=== PATIENT | male | born 1945 | race Caucasian/White ===

== ENCOUNTER 2022-10-15 10:25 | Outpatient (CLI) | payer OTHER, SELFPAY ==
[2022-10-15 15:42] LABS: Basophils Absolute Auto 0.02 K/uL (0.00-0.30); Basophils Percent Auto 0.3 % (0.0-3.0); Eosinophils Absolute Auto 0.13 K/uL (0.00-0.50); Eosinophils Percent Auto 1.9 % (0.0-7.0); Hematocrit 44.4 % (37.0-53.0); Hemoglobin* 14.7 gm/dL (13.5-17.5); Immature Granulocytes Abs Auto 0.01 K/uL (0.00-0.30); Immature Granulocytes Pct Auto 0.1 %; Lymphocytes Absolute Auto 1.54 K/uL (0.90-2.90); Lymphocytes Percent Auto 22.7 % (20-44); Mean Corpuscular HGB Conc 33 gm/dL (32-36); Mean Corpuscular Hemoglobin 33 pg (26-34); Mean Corpuscular Volume 98 fL (80-100); Monocytes Percent Auto 8.4 % (0.0-11.0); Neutrophils Absolute Auto 4.52 K/uL (1.7-7.0); Neutrophils Percent Auto 66.6 % (42.0-72.0); Platelet Count* 322 K/uL (140-440); RDW Coefficient of Variation % 12.6 % (11.5-15.5); Red Blood Count 4.52 m/uL (4.30-5.90); White Blood Count* 6.79 K/uL (4.50-11.00)
[2022-10-15 15:43] LABS: Albumin* 4.2 g/dL (3.3-5.0); Chloride* 104 mmol/L (96-114); Potassium* 4.3 mmol/L (3.6-5.1); Sodium* 141 mmol/L (135-149)
[2022-10-15 15:45] LABS: Cholesterol* 132 mg/dL (90-199); Creatinine* 0.8 mg/dL (0.5-1.5); Estimated Glomerular Filt Rate 91 ml/min; Slide Review Reflex No
[2022-10-15 15:46] LABS: Alanine Aminotransferase* 25 U/L (4-50); Alkaline Phosphatase* 74 U/L (40-150); Aspartate Amino Transferase* 19 U/L (12-35); Bilirubin Total* 0.6 mg/dL (0.1-1.5); Blood Urea Nitrogen* 18 mg/dL (7-30); Carbon Dioxide* 29 mmol/L (20-32); Glucose* 116 mg/dL (60-115); Total Protein* 6.8 g/dL (6.0-8.3); Triglycerides* 62 mg/dL (40-149)
[2022-10-15 15:47] LABS: Calcium* 9.5 mg/dL (8.4-10.6); HDL Cholesterol* 51 mg/dL (>=40); LDL Cholesterol Calculated 69 mg/dL (<100)
[2022-10-15 15:48] LABS: Creatinine Urine 154.2 mg/dL
[2022-10-15 15:50] LABS: Microalbumin Creatinine Ratio 10 mg/g (0-30); Microalbumin Urine 2 mg/dL
== END 2022-10-15 10:26 | disposition home or self-care (01) ==
PROVIDERS: PCP Nurse Practitioner Family; Visit Provider Nurse Practitioner Family
DX: E11.9 Type 2 diabetes mellitus without complications (principal); E78.5 Hyperlipidemia, unspecified; R53.83 Other fatigue; I10 Essential (primary) hypertension; G20 Parkinson's disease
CPT/HCPCS: 80053; 80061; 82043; 82570; 85025

== ENCOUNTER 2023-03-22 17:34 | Outpatient (CLI) | payer OTHER, SELFPAY | END 2023-03-22 17:35 | disposition home or self-care (01) | PROVIDERS: PCP Nurse Practitioner Family; Visit Provider Nurse Practitioner Family | DX: M25.532 Pain in left wrist (principal); R20.2 Paresthesia of skin; R79.89 Other specified abnormal findings of blood chemistry; E11.9 Type 2 diabetes mellitus without complications; I10 Essential (primary) hypertension; E78.5 Hyperlipidemia, unspecified | CPT/HCPCS: 82607; 84550; 85651; 86140 ==

== ENCOUNTER 2023-05-02 14:25 | Outpatient (CLI) | payer OTHER, SELFPAY | END 2023-05-02 14:26 | disposition home or self-care (01) | PROVIDERS: PCP Nurse Practitioner Family; Visit Provider Nurse Practitioner Family | DX: R22.43 Localized swelling, mass and lump, lower limb, bilateral (principal); R53.83 Other fatigue; R60.0 Localized edema | CPT/HCPCS: 80048; 83880 ==

== ENCOUNTER 2024-04-27 10:27 | Outpatient (CLI) | payer MEDICARE, BC, SELFPAY ==
--- NOTE | 2024-04-27 10:30 | CRLHL7_ITS ---
For Patients: As a result of the Cures Act, medical imaging exams and procedure reports are released immediately into your electronic medical record. You may view this report before your referring provider. If you have questions, please contact your health care provider. Indication: Fall, pain Technique: Right shoulder 3 views. Comparison: None. Findings: No fracture or dislocation. Narrowing and spurring at the acromioclavicular joint. Subacromial spur. Glenohumeral narrowing and spurring. Osteopenia. Intact ribs. Impression: No sign of acute or subacute injury. Degenerative joint disease. Dictated by Vern Romero MD @ 04/27/2024 3:13:14 PM (Electronically Signed)
== END 2024-04-27 10:28 | disposition home or self-care (01) ==
LOC: RAD 10:30
PROVIDERS: PCP Nurse Practitioner Family; Visit Provider Nurse Practitioner Family
DX: M25.511 Pain in right shoulder (principal)
CPT/HCPCS: 73030

== ENCOUNTER 2024-08-10 13:38 | Outpatient (CLI) | payer MEDICARE, BC, SELFPAY | END 2024-08-10 13:39 | disposition home or self-care (01) | LOC: KYNREF 13:38 | PROVIDERS: PCP Nurse Practitioner Family; Visit Provider Nurse Practitioner Family | DX: R35.0 Frequency of micturition (principal) | CPT/HCPCS: 87086 ==